=== PATIENT | male | born 1975 | race Caucasian/White ===

== ENCOUNTER 2016-11-15 20:40 | Emergency (ER) | payer MEDICAID ==
[2016-11-16 01:51] VITALS: BP 133/87
== END 2016-11-16 01:51 | disposition home or self-care (01) ==
LOC: ED 20:40
DX: S29.011A Strain of muscle and tendon of front wall of thorax, initial encounter (principal); W19.XXXA Unspecified fall, initial encounter; Y93.89 Activity, other specified; Y92.89 Other specified places as the place of occurrence of the external cause; Y99.8 Other external cause status

== ENCOUNTER 2017-07-15 01:00 | Emergency (ER) | payer MEDICAID ==
[~2017-07-15] VITALS: Ht 172.7 cm; Wt 84.4 kg
[2017-07-15 01:06] VITALS: Ht 172.7 cm; Wt 84.4 kg
[2017-07-15 03:24] VITALS: BP 138/83
== END 2017-07-15 03:24 | disposition left against medical advice (07) ==
LOC: ED 01:00
DX: S39.012A Strain of muscle, fascia and tendon of lower back, initial encounter (principal); X58.XXXA Exposure to other specified factors, initial encounter; Y93.89 Activity, other specified; Y92.89 Other specified places as the place of occurrence of the external cause; Y99.8 Other external cause status
CPT/HCPCS: J1885

== ENCOUNTER 2020-02-03 17:27 | Emergency (ER) | payer OTHER ==
[~2020-02-03] VITALS: Ht 175.3 cm; Wt 83.0 kg
[2020-02-03 17:45] VITALS: Ht 175.3 cm; Wt 83.0 kg
[2020-02-03 18:59] VITALS: BP 134/90
== END 2020-02-03 18:59 | disposition home or self-care (01) ==
LOC: ED 17:27
DX: K40.90 Unilateral inguinal hernia, without obstruction or gangrene, not specified as recurrent (principal)